=== PATIENT | female | born 1995 | race Caucasian/White ===

== ENCOUNTER 2025-02-21 16:26 | Inpatient (IN) | payer OTHER ==
[~2025-02-21] VITALS: Ht 165.1 cm; Wt 77.3 kg
[~2025-02-21 16:26] MED LIST: ACET-2247 PO; BISM-157 PO; FAMO20 PO; MAGN-169 PO
[2025-02-21 17:07] LABS: PLATELET COUNT (AUTO) 296 K/uL (150-450); RED BLOOD CELL COUNT(AUTO) 4.17 MIL/uL (4.00-5.20); RED CELL DISTRIBUTION WIDTH 13.4 % (11.5-14.5); WHITE BLOOD COUNT (AUTO) 9.0 K/uL (4.5-11.0)
[2025-02-21 17:16] LABS: CALCIUM, TOTAL 9.3 mg/dL (8.8-10.5); CREATININE 0.76 mg/dL (0.60-1.30); GLOMERULAR FILTR. RATE CALC > 60 mL/min (>60); GLUCOSE,RANDOM 111 mg/dL (70-110); SODIUM SERUM 137 mmol/L (136-145); UREA NITROGEN, BLOOD 13 mg/dL (7-18)
[2025-02-21 17:35] LABS: ALCOHOL, BLOOD (SERUM) < 3 mg/dL (0-10)
[2025-02-21] MEDS: ONDANSETRON HCL 4 MG/2 ML VIAL IVP ONE (17:45)
[2025-02-21] MEDS: ACETAMINOPHEN 500 MG TABLET PO ONE (17:45)
[2025-02-21] MEDS: DOXYCYCLINE HYCLATE 100 MG in DEXTROSE 5%-WATER 100 ML IV ONE (17:45)
[2025-02-21 17:49] LABS: ASPARTATE AMINOTRANSFERASE 41 U/L (15-37); TOTAL PROTEIN, SERUM 7.9 g/dL (6.4-8.2)
[2025-02-21] MEDS ORDERED: MAG HYDROX/ALUMINUM HYD/SIMETH ES 30 ML SUSPENSION UDCUP PO PRN ×2 (21:45)
[2025-02-21] MEDS ORDERED: IBUPROFEN 600 MG TABLET PO PRN ×2 (21:45)
[2025-02-21] MEDS ORDERED: IPRATROPIUM BROMIDE 0.5 MG/2.5 ML NEB SOLUTION NEB PRN (21:45)
[2025-02-21] MEDS ORDERED: ONDANSETRON HCL 4 MG/2 ML VIAL IVP PRN (21:45)
[2025-02-21] MEDS ORDERED: DICYCLOMINE HCL 10 MG CAPSULE PO PRN (21:45)
[2025-02-21] MEDS ORDERED: BISACODYL 10 MG RECTAL RECTAL SUPPOSITORY PR PRN (21:45)
[2025-02-21] MEDS ORDERED: ACETAMINOPHEN 325 MG TABLET PO PRN (21:45)
[2025-02-21] MEDS ORDERED: MAGNESIUM HYDROXIDE SUSPENSION 30 ML UDCUP PO PRN (21:45)
[2025-02-21] MEDS ORDERED: ALBUTEROL SULFATE 2.5 MG/0.5 ML NEB SOLUTION NEB PRN (21:45)
[2025-02-21] MEDS ORDERED: BACLOFEN 10 MG TABLET PO PRN (21:45)
[2025-02-21 23:00] VITALS: BP 110/67; PULSE 55; RESP 18; TEMP 97.7; O2SAT 99
[2025-02-21 23:16] VITALS: BP 110/67; PULSE 55; RESP 18; TEMP 97.7; O2SAT 99
[2025-02-21] MEDS: SODIUM CHLORIDE 0.45% 1,000 ML IV SCH (23:19)
[2025-02-21] MEDS: HEPARIN SODIUM,PORCINE 5,000 UNITS/ML VIAL SQ SCH (23:20)
[2025-02-22] MEDS ORDERED: SODIUM CHLORIDE 0.9% 250 ML IV ONE (00:32)
[2025-02-22] MEDS: VANCOMYCIN HCL 1.5 GM in DEXTROSE 5%-WATER 250 ML IV ONE (00:40)
[2025-02-22 05:28] VITALS: BP 114/74; PULSE 62; RESP 18; TEMP 98.4; O2SAT 98
[2025-02-22 06:53] LABS: CALCIUM, TOTAL 9.2 mg/dL (8.8-10.5); CREATININE 0.71 mg/dL (0.60-1.30); GLOMERULAR FILTR. RATE CALC > 60 mL/min (>60); GLUCOSE,RANDOM 82 mg/dL (70-110); SODIUM SERUM 139 mmol/L (136-145); UREA NITROGEN, BLOOD 10 mg/dL (7-18)
[2025-02-22 06:59] VITALS: BP 114/74; PULSE 62; RESP 18; TEMP 98.4; O2SAT 98
[2025-02-22 08:31] VITALS: BP 110/68; PULSE 62; RESP 18; TEMP 98.2; O2SAT 97
[2025-02-22] MEDS: PROMETHAZINE HCL 25 MG TABLET PO PRN (08:53)
[2025-02-22] MEDS: PANTOPRAZOLE SODIUM 40 MG DR TABLET PO SCH (08:53)
[2025-02-22] MEDS: VANCOMYCIN HCL 1 GM in DEXTROSE 5%-WATER 250 ML IV SCH (08:54)
[2025-02-22 14:53] LABS: PH,URINE DRUG SCREEN 6.0 (5.0-8.0)
[2025-02-22 14:59] LABS: ALCOHOL, URINE DRUG SCREEN NEGATIVE (NEGATIVE); AMPHET/METH SCREEN,URINE POSITIVE (NEGATIVE); BARBITURATE SCREEN, URINE NEGATIVE (NEGATIVE); CANNABINOID SCREEN,URINE POSITIVE (NEGATIVE); COCAINE SCREEN,URINE NEGATIVE (NEGATIVE); METHADONE SCREEN, URINE NEGATIVE (NEGATIVE)
[2025-02-22] MEDS ORDERED: POTASSIUM CHL 10 MEQ/WATER 50 ML IV PRN (15:30)
[2025-02-22] MEDS: POTASSIUM CHLORIDE 20 MEQ ER TABLET PO PRN (16:15)
[2025-02-22] MEDS: ACETAMINOPHEN 325 MG TABLET PO PRN (16:16)
[2025-02-22 20:05] VITALS: BP 115/71; PULSE 67; RESP 18; TEMP 98.4; O2SAT 98
[2025-02-23 05:05] VITALS: BP 114/73; PULSE 73; RESP 18; TEMP 98.2; O2SAT 98
[2025-02-23 08:57] VITALS: BP 127/83; PULSE 65; RESP 18; TEMP 98.2; O2SAT 100
[2025-02-23 09:58] LABS: CALCIUM, TOTAL 8.9 mg/dL (8.8-10.5); CREATININE 0.86 mg/dL (0.60-1.30); GLOMERULAR FILTR. RATE CALC > 60 mL/min (>60); GLUCOSE,RANDOM 124 mg/dL (70-110); SODIUM SERUM 135 mmol/L (136-145); UREA NITROGEN, BLOOD 7 mg/dL (7-18)
[2025-02-23 20:38] VITALS: BP 129/73; PULSE 71; RESP 18; TEMP 99; O2SAT 98
[2025-02-23] MEDS: DOXYCYCLINE HYCLATE 100 MG TABLET PO SCH (20:50)
[2025-02-23] MEDS: ZOLPIDEM TARTRATE 5 MG TABLET PO PRN (23:21)
[2025-02-24 04:30] VITALS: BP 133/88; PULSE 86; RESP 18; TEMP 98.8; O2SAT 99
[2025-02-24 07:45] LABS: CALCIUM, TOTAL 9.4 mg/dL (8.8-10.5); CREATININE 0.57 mg/dL (0.60-1.30); GLOMERULAR FILTR. RATE CALC > 60 mL/min (>60); GLUCOSE,RANDOM 98 mg/dL (70-110); SODIUM SERUM 139 mmol/L (136-145); UREA NITROGEN, BLOOD 4 mg/dL (7-18)
[2025-02-24 08:23] VITALS: BP 124/86; PULSE 76; RESP 18; TEMP 97.7; O2SAT 100
[2025-02-24] MEDS: LOPERAMIDE HCL 2 MG/15 ML SUSPENSION UDCUP PO PRN (09:24)
[2025-02-24 13:05] VITALS: BP 131/82; PULSE 70; RESP 18; TEMP 98.4; O2SAT 96
[2025-02-24 16:55] VITALS: RESP 18
[2025-02-24 19:56] VITALS: BP 108/74; PULSE 64; RESP 18; TEMP 97.3; O2SAT 100
[2025-02-25 04:48] VITALS: BP 102/64; PULSE 60; RESP 19; TEMP 97.8; O2SAT 97
[2025-02-25 07:07] LABS: PLATELET COUNT (AUTO) 195 K/uL (150-450); RED BLOOD CELL COUNT(AUTO) 4.67 MIL/uL (4.00-5.20); RED CELL DISTRIBUTION WIDTH 13.5 % (11.5-14.5); WHITE BLOOD COUNT (AUTO) 7.6 K/uL (4.5-11.0)
[2025-02-25 08:00] VITALS: BP 95/56; PULSE 60; RESP 19; TEMP 97.9; O2SAT 99
[2025-02-25 20:14] VITALS: BP 120/76; PULSE 68; RESP 20; TEMP 98.6; O2SAT 98
[2025-02-26 04:51] VITALS: BP 103/68; PULSE 59; RESP 20; TEMP 97.5; O2SAT 98
[2025-02-26 07:50] VITALS: BP 130/86; PULSE 69; RESP 20; TEMP 98.2; O2SAT 100
[2025-02-26] MEDS ORDERED: DOXY-354 PO (13:03)
[2025-02-26] MEDS ORDERED: ACET-2247 PO (13:15)
[2025-02-26] MEDS ORDERED: MAG30ORA19 PO (13:27)
== END 2025-02-26 19:18 | DRG 603 ==
LOC: EMS 16:28 → EDH 19:07 → 6S 23:14
PROVIDERS: ADMIT Hospitalist; ATTEND Hospitalist
DX: L03.113 Cellulitis of right upper limb (principal); F11.23 Opioid dependence with withdrawal; E87.6 Hypokalemia; F12.10 Cannabis abuse, uncomplicated; F15.10 Other stimulant abuse, uncomplicated; Z88.2 Allergy status to sulfonamides; Z87.891 Personal history of nicotine dependence
CPT/HCPCS: 80048; 80076; 80202; 80307; 84132; 84703; 85025; 96365; 96375; 99285; G0480; J1644; J2405; J3373; J3490; J7050; J7060